=== PATIENT | male | born 1970 | race Caucasian/White ===

== ENCOUNTER 2022-04-12 04:39 | Day surgery (SDC) | payer OTHER ==
[2022-04-08 07:41] VITALS: BMI 30.4
[2022-04-12 12:32] VITALS: BP 123/73; PULSE 56; RESP 19; TEMP 99
== END 2022-04-12 12:25 | disposition home or self-care (01) ==
LOC: JASU-ENDO 04:39
PROVIDERS: ATTEND Student in an Organized Health Care Education/Training Program
PROC: 0DBM8ZX Excision of Descending Colon, Via Natural or Artificial Opening Endoscopic, Diagnostic (ICD-10-PCS; 2022-04-12)
PROC: 0DBP8ZX Excision of Rectum, Via Natural or Artificial Opening Endoscopic, Diagnostic (ICD-10-PCS; 2022-04-12)
PROC: 0D5K8ZZ Destruction of Ascending Colon, Via Natural or Artificial Opening Endoscopic (ICD-10-PCS; principal; 2022-04-12 10:00)
DX: Z12.11 Encounter for screening for malignant neoplasm of colon (principal); D12.2 Benign neoplasm of ascending colon; D12.4 Benign neoplasm of descending colon; K62.1 Rectal polyp
CPT/HCPCS: 88305-TC